=== PATIENT | male | born 1955 | race African-American/Black ===

== ENCOUNTER → 2017-09-02 | Outpatient (CLI) | payer BC ==
[~2017-09-02] MED LIST: HYZ/50125 PO
[2017-09-02 13:14] LABS: HEMATOCRIT 39.8 % (42-52); MEAN CELL VOLUME 82.7 fL (80-100); MEAN CORPUSCULAR HEMOGLOBIN 28.5 pg (25-34); MEAN CORPUSCULAR HGB CONC 34.4 g/dl (32-36); MEAN PLATELET VOLUME 10.6 fL (7.4-10.4); PLATELET COUNT 188 K/uL (130-400); RED BLOOD COUNT 4.81 M/uL (4.7-6.1); WHITE BLOOD COUNT 4.88 K/uL (4.8-10.8)
[2017-09-02 14:43] LABS: ALT/SGPT 107 U/L (12-78); BLOOD UREA NITROGEN 16 mg/dl (7-18); CALCIUM 9.2 mg/dl (8.5-10.1); CARBON DIOXIDE 27 mmol/L (21-32); CHLORIDE 105 mmol/L (98-107); CHOLESTEROL 149 mg/dl (0-200); CREATININE 1.32 mg/dl (0.60-1.40); GLUCOSE 88 mg/dl (70-99); SODIUM 139 mmol/L (136-145); TRIGLYCERIDES 37 mg/dl (0-150); VERY LOW DENSITY LIPOPROT CALC 7 mg/dl
[2017-09-02 14:54] LABS: ALB/GLOB RATIO 0.9 (0.9-2); ALKALINE PHOSPHATASE 74 U/L (45-117); AST/SGOT 59 U/L (15-37); CHOLESTEROL/HDL RATIO 1.4; HDL CHOLESTEROL 103 mg/dl; LDL CHOLESTEROL CALCULATED 39 mg/dl
== END | disposition home or self-care (01) ==
LOC: C.LAB 11:28
PROVIDERS: ATTEND Family Medicine
DX: Z13.220 Encounter for screening for lipoid disorders (principal); I10 Essential (primary) hypertension; Z12.5 Encounter for screening for malignant neoplasm of prostate

== ENCOUNTER → 2017-11-28 | Outpatient (CLI) | payer OTHER ==
[2017-11-28 10:34] LABS: AST/SGOT 45 U/L (15-37)
[2017-11-28 10:34] LABS: ALT/SGPT 76 U/L (12-78)
== END | disposition home or self-care (01) ==
LOC: C.LAB 09:24
DX: R94.5 Abnormal results of liver function studies (principal)

== ENCOUNTER → 2017-11-29 | Outpatient (CLI) | payer OTHER ==
--- NOTE | 2017-11-30 06:14 | PAP/PSG TECHNICIAN REPORT ---
[facility] Interventional Sale Consultant Polysomnogram Report Study name: None Report date: 11/30/2017 Study date: 11/29/2017 Referring Physician: Dr. Arnold Ken Name: BRENDAN WEBB Interpreting Physician: Clemente Michelle D.O. Date of : 1955 Interventional Sale Consultant: Kajal Granados [facility]. Sex: Male Age: 62 Study Type: PSG Weight: 201 lbs Height: 62 years, Height 6' 2" BMI: 25.8 Medications: NORVASC 10 MG, BENICAR 40 MG Patient History 62 yr-old male here for a baseline/split study. He has a history of snoring and daytime sleepiness. His Burden scale is 6. The test was started on room air. ETCO2 testing was not utilized during this study. Room 3 Parameters Monitored NPSG: E1-M2, E2-M1, Fp1-M2, Fp2-M1, F3-M2, F4-M2, F4-M1, C3-M2, C4-M2, C4-M1, O1-M2, O2-M2, O2-M1, T3-M2, T4-M1, P3-M2, P4-M1, CHIN1, CHIN2, HR, EKG, Legs, PFLOW, SNOR, FLOW, CFLOW, Tidal Volume, THOR, ABDO, SpO2, PLTH, CPRESS, ETCO2 Wave, ETCO2, pH Sleep Architecture Sleep Stages Time at Lights Off 10:05:45 PM STAGES Time (min.) TST (%) Time at Lights On 5:36:15 AM Wake 46.0 -- Total Recording Time (TRT) 450.50 min. N1 47.0 12 Total Sleep Period (TSP) 435.5 min. N2 227.5 56 Total Sleep Time (TST) 404.5min. N3 35.5 9 Awake Time 46.0 min. REM 94.5 23 Wake after Sleep Onset 31.0 min. Sleep Efficiency (SE) 90 % Sleep Onset Latency (SANDRA) 15.0 min. Number of Stage 1 Shifts None Awakenings 35 Stage Changes 177 Number of REM periods 14 REM 94.5 23 REM Latency 88.5 min. NREM 310.0 77 Body Position Analysis Supine Right Left Side Prone Vertical Total Sleep Time (min.) 66.8 346.6 0.0 346.59 0.0 0.0 Total Sleep Time (%) 14% 86% 0% 86 0% N/A% Total Sleep Time REM (min.) 0.0 94.5 0.0 None 0.0 0.0 Total Sleep Time NREM (min.) 57.9 252.1 0.0 None 0.0 0.0 Intermittent Wake (min.) 8.9 36.5 0.6 None 0.0 0.0 Total Sleep Period (%) 14% None None None None None Arousals Myoclonus (PLM) * Events Count Index Events Count Index Spontaneous 25 4 Events Awake (PLMW) 75 97.8 Respiratory 58 9.6 Events Asleep w/ Arousal (PLMA) 10 1.5 PLM 10 1 Events Asleep w/o Arousal (PLMS) 278 41.2 Snoring 14 2 Total Asleep 288 42.7 Total 107 16 Total 363 48 Respiratory Analysis * CA OA MA CH H RERA Total Count 3 40 12 0 88 8 143 Index 0.4 5.9 1.8 0 13.1 1 22.4 Mean Duration 16.2 26.0 28.9 0.00 23.6 21.7 24.4 Longest Duration 19.6 66.8 33.8 0.00 33.8 25.3 77.2 Respiratory Event Summary Total Supine ~Supine Right Left Prone REM NREM Apneas Count 55 45 10 10 N/A N/A 8 47 Index 8.2 47 2 1.7 N/A N/A 5 9 Hypopneas (4% Desat) Count 88 29 59 59 N/A N/A 19 69 Index 13.1 30.0 10 10.2 N/A N/A 12.1 13.4 Apneas & All Hypopneas Count 143 74 69 69 N/A N/A 27 116 Index 21.2 77 12 12 N/A N/A 17.1 22.5 Respiratory Events (Flat Sheet Maker+All Hyp+RERA) Count 143 74 77 77 N/A N/A 27 116 Index 22.4 77 13 13.3 N/A N/A 19.7 23.2 Respiratory Related Arousal Count 58 74 23 23 N/A N/A 14 51 Index 9.6 44 4 4 N/A N/A 9 10 Snoring Analysis Supine Right Left Prone REM NREM Total Snore duration 54.1 min Snores count 223 1,614 N/A N/A 418 1,419 1,837 Snore mean duration 1.8 Sec Snores index 231 279 N/A N/A 265.4 274.6 272.5 TST with snoring (%) 13.4% Desaturation Event Summary: Minimum %SpO2 Event Count Mean/Min/Max Duration(sec.) Desaturation Index % Time In Bed > 90 157 30.0 / 13.3 / 60.0 27.9 75.0 86 - 90 7 27.9 / 11.3 / 55.8 4.6 20.5 81 - 85 1 21.3 / 21.3 / 21.3 3.4 3.9 76 - 80 0 N/A 0.0 0.6 71 - 75 0 N/A 0.0 0.0 66 - 70 0 N/A 0.0 0.0 61 - 65 0 N/A 0.0 0.0 56 - 60 0 N/A 0.0 0.0 51 - 55 0 N/A 0.0 0.0 < 50 0 N/A 0.0 0.0 Total REM NREM Awake <50% 0.0 min. 0.0 min. 0.0 min. 0.0 min. 51 - 60% 0.0 min. 0.0 min. 0.0 min. 0.0 min. 61 - 70% 0.0 min. 0.0 min. 0.0 min. 0.0 min. 71 - 80% 2.7 min. 1.3 min. 0.6 min. 0.8 min. 81 - 90% 109.7 min. 28.9 min. 66.2 min. 14.6 min. 91 - 100% 338.0 min. 64.3 min. 243.2 min. 30.5 min. Average 91 91 91 91 Minimum SpO2 74 78 75 74 Desaturation Event Index 21.4 19.0 24.0 14.3 # Desat. Events below 89% 102 16 82 4 Time(%) with Saturation below 89% 10.0 3.7 4.9 1.4 Time(min.) with Saturation below 89% 45.1 16.7 22.0 6.4 Time (mins) REM (mins) NREM (mins) % of TST SpO2 Below 90% 137 22 N115 13.8 SpO2 Below 88% 43 0 0 8 Heart Rate Analysis Min (bpm) Max (bpm) Average (bpm) Awake 41 93 60 NREM 43 80 52 REM 42 79 51 Overall 42 80 52 Supplemental O2 Values Minimum O2 level: None Value Start Time End Time Interventional Sale Consultant Comments Mr. Webb slept in the right, left, and supine positions. Occasional cardiac arrhythmias were noted (please refer to the printouts). PLMs were noted. No bruxism noted. Snoring was noted and scored as a 4 on a scale of 1 through 5. (0=no snoring, 5=snoring loud enough to be heard through a closed door or down the [address] way). He did not meet specific Split-Night criteria during the diagnostic portion of this study. He did not wake up to use the restroom during the night. Mr. Webb stated that he slept about the same as usual. The final report will be interpreted and signed by a sleep physician. The completed physician report will then be placed in the patient medical record. Therapy (cm H2O) 0 TIB (min.) 450.5 TST (min.) 404.5 Sleep Onset (min.) 15.0 REM Onset From Sleep (min.) 88.5 Sleep Efficiency % 90 Wakefulness (%) 10 Wakefulness (min.) 46.0 NREM 1 (%) 12 NREM 1 (min.) 47.0 NREM 2 (%) 56 NREM 2 (min.) 227.5 NREM 3 (%) 9 NREM 3 (min.) 35.5 REM (%) 23 REM (min.) 94.5 # Arousals 107 Arousal Index 16 # Snore 1,837 Snore Index 272.5 AHI 21.2 AHI Supine 77 AHI Non-Supine 12 NREM AHI 22.5 REM AHI 17.1 RDI 22.4 # Obstructive Apnea 40 # Central Apnea 3 # Mixed Apnea 12 # Hypopneas 88 RERAs 8 Total Respiratory Events 154 Time Below SpO2 89% (min.) 38.7 Mean NREM SpO2 (%) 91 Mean REM SpO2 (%) 91 Mean Sleep SpO2 (%) 91 Min NREM SpO2 (%) 75 Min REM SpO2 (%) 78 Position Supine (min.) 66.8 Position Non-supine (min.) 346.6 LM Index Sleep 42.7 LM Index NREM 38.7 LM Index REM 55.9 Mean Heart Rate (bpm) 52 Min Heart Rate (bpm) 42
--- NOTE | 2017-12-06 09:07 | Sleep Study ---
Sleep Study Report Date of Service: 11/29/2017 Sleep Study Report CLINICAL DATA: The patient is a 62-year-old male with a history of snoring and daytime sleepiness. His [place] Sleepiness Scale score is 6. He is referred by Dr. Kne. This was an in-lab overnight polysomnography. SLEEP ARCHITECTURE: The total sleep period was 435.5 minutes. The total sleep time was 404.5 minutes. The sleep efficiency was normal at 90 percent. The sleep latency was 15 minutes. Wake after sleep onset was 31 minutes. The REM latency was 88.5 minutes. Sleep consisted of stage N1 12 percent, stage N2 56 percent, stage N3 9 percent, stage REM 23 percent. AROUSAL DATA: The patient had a total of 107 arousals including 25 spontaneous arousals, 58 respiratory arousals, 10 PLM arousals, and 14 snoring arousals. The arousal index was 16. PLM DATA: The patient had a total of 288 periodic limb movements for a PLM index of 42.7. There were only 10 arousals associated with limb movements for a PLM arousal index of 1.5. EKG: The underlying cardiac rhythm was normal sinus. The cardiac rates ranged from 42-80. The average heart rate was 52. The patient had occasional extrasystoles. Some more PVCs, some PACs, and some interpolated beats. RESPIRATORY DATA: The patient had a total of 143 respiratory events including 3 central apneas, 40 obstructive apneas, 12 mixed apneas, and 88 hypopneas. Hypopneas were scored according to the 4 percent desaturation rule. The longest apnea was 66.8 seconds. The mean duration of the hypopneas was 23.6 seconds. The patient also had 8 RERAs. The apnea-hypopnea index was elevated at 21.2 events per hour. This reflects moderate sleep apnea. OXIMETRY DATA: The average saturation for the night was 91 percent. The minimum saturation was 74 percent. There were is 45.1 minutes with saturations less than 89 percent. TRACK ANNOUNCER COMMENTS: The patient slept on the right, left, and supine positions. Occasional cardiac arrhythmias were noted. PLMS were noted. No bruxism noted. Snoring was noted and scored as a 4 on a scale of 1 through 5. He did not meet specific split night criteria during the diagnostic portion of this study. He did not wake up to use the restroom during the night. IMPRESSIONS: 1. Moderate obstructive sleep apnea 2. Periodic limb movement disorder COMMENTS: The patient has moderate sleep apnea. His sleep efficiency and sleep architecture were overall quite good. He had fairly frequent limb movements. These did not result in significant arousals however. His oxygenation was decreased as noted. Some of the a respiratory events were markedly prolonged. Treatment is advised. RECOMMENDATIONS: 1. It is advised that the patient be given a trial of nasal CPAP. This could be done by referral to the Sleep Lab for a CPAP titration. Alternatively he could be treated with auto CPAP. 2. No treatment is necessary at present for the underlying limb movement disorder. The obstructive sleep apnea should be treated primarily. 3. It is suggested that the patient avoid sleeping in the supine position. During this study his apnea-hypopnea index while supine was 77. Copies To 1: Clemente Michelle DO; Arnold Ken M.D.
== END | disposition home or self-care (01) ==
LOC: C.NEUR 21:00
PROVIDERS: ATTEND Family Medicine
DX: G47.33 Obstructive sleep apnea (adult) (pediatric) (principal); G47.61 Periodic limb movement disorder